=== PATIENT | male | born 1980 | race Caucasian/White ===

== ENCOUNTER 2018-09-29 09:32 | Emergency (ER) | payer OTHER, SELFPAY ==
[2018-09-29 09:36] VITALS: BP 138/90; PULSE 87; RESP 20; TEMP 36.8; O2SAT 100
--- NOTE | 2018-09-29 11:28 | ED.GENADUL_ITS ---
Discharge Plan Disposition Patient Disposition: HOME Condition: Stable Discharge Details Chief Complaint: Laceration Clinical Impression: Finger laceration Primary Care Provider: None,None ED Provider: Betina Jones Home Meds and New Rx's Prescriptions: Continued Triumeq 600-50-300 mg Tablet 1 tab PO DAILY RF: 0 Discharge Instructions Instructions: Finger Laceration (ED) Additional Instructions: Keep wound clean, dry and intact. If you notice any pain, mild redness or swelling, apply topical antibiotic ointment. Return to the emergency department or follow-up with primary care doctor in 7 days for suture removal. If you have any significant signs of infection such as fever, or worsening redness pain or swelling, return to the emergency department for evaluation. You will receive a call from care management regarding a follow-up appointment with her primary care doctor. Stand Alone Forms: Work Release Discharge Data Discharge Physician: Betina Jones Medical Decision Making 37-year-old male who presents with right thumb laceration sustained with laser while at work. Tetanus up-to-date. He has a 2 cm laceration on the medial aspect of the right distal thumb lateral to the nailbed. There is no nail laceration. There is no bony injury, foreign body. Patient is neurovascularly intact. No focal deficits. Wound was irrigated well without evidence of foreign body, tendon or bony injury. 3 sutures were placed. Patient has a history of HIV and states he is taking his HIV medication. He states his viral load is undetectable. He does not currently have a primary care doctor as he recently moved from [place]. Will place patient on care management list to arrange for follow-up appoint with primary care doctor. He is instructed return here or to a primary care doctor in 7 days for suture removal. He is instructed to keep area clean, dry and intact and covered with antibiotic ointment with any signs of mild infection. He is instructed return here immediately with any significant worsening signs of infection to fever, or significant increase in redness pain or swelling. HPI General Mode of arrival: ambulatory . Date/Time Provider Initiated Documentation: 09/29/18 09:34 . Limitations to Documentation: no limitations . Information obtained by: patient . HPI Narrative: Patient is a 37-year-old male who presents the ED with complaint of right thumb laceration sustained at work when cutting with a razor. Patient states his tetanus is up-to-date within the past 5 years. He denies any bony injury or foreign body. Related Data Home Medications Medication Instructions Recorded Confirmed Triumeq 1 tab PO DAILY 09/29/18 09/29/18 Allergies Allergy/AdvReac Type Severity Reaction Status Date / Time No Known Allergies Allergy Unverified 09/29/18 09:39 General Stated Complaint: Laceration AMY: 3 Review of Systems Review of Systems All systems reviewed & are unremarkable except as noted in HPI and below Constitutional Reports as per HPI, Denies chills and Denies fever(s) Eyes Denies blurry vision ENT Denies dizziness, Denies sore throat and Denies throat swelling Cardiovascular Denies chest pain and Denies dyspnea Respiratory Denies cough and Denies dyspnea Gastrointestinal Denies abdominal pain, Denies diarrhea and Denies vomiting Genitourinary Denies hematuria and Denies dysuria Musculoskeletal Denies back pain and Denies numbness Integumentary/Breasts Denies lesions and Denies rash Neurologic Denies dizziness, Denies focal weakness and Denies numbness Allergic/Immunologic Denies throat swelling [facility] Medical History HIV (human immunodeficiency virus infection) (Acute) Surgical History No significant past surgical history (Acute) Social History Smoking and Tabacco status: Current every day alcohol intake: never substance use type: does not use Exam Const General: cooperative, healthy appearing and no acute distress HENMT Head: normal to inspection Mouth: oral mucosae normal Eyes General: appearance normal, both eyes and all related structures Neck Neck: normal visual inspection Resp Effort & Inspection: normal respiratory effort and able to speak in complete sentences Cardio Rate: regular rate Skin General skin exam: no rashes or lesions noted Neuro General: alert, awake and oriented x3 Motor: muscle tone normal throughout Extrem Other: 2 cm straight laceration noted on medial aspect of right distal thumb. Wound edges closely approximated. No foreign body noted. No erythema, edema or ecchymosis. No bony injury. Psych Appearance: grossly normal Affect: normal affect Course Vital Signs Temperature 98.2 F 09/29/18 09:36 Pulse 87 09/29/18 09:36 Respiratory Rate 20 09/29/18 09:36 Blood Pressure 138/90 09/29/18 09:36 Pulse Oximetry 100 09/29/18 09:36 Temperature 98.2 F 09/29/18 09:36 Temperature Source Temporal Artery Scan 09/29/18 09:36 Pulse 87 09/29/18 09:36 Respiratory Rate 20 09/29/18 09:36 Respiratory Effort Non-Labored 09/29/18 09:36 Blood Pressure 138/90 09/29/18 09:36 Blood Pressure Position Sitting 09/29/18 09:36 Pulse Oximetry 100 09/29/18 09:36 Oxygen Delivery Method Room Air 09/29/18 09:36 Oxygen Flow Rate 0 09/29/18 09:36 Pain Level 3 09/29/18 09:36 Procedures Laceration Laceration 1: Site: upper extremity (R thumb) Side (If applicable): right Size (cm): 2 Description: linear Depth: simple, single layer Local Anesthetic: Lidocaine 1% Pre-repair: wound explored and irrigated extensively Skin layer closed with: nylon Size (cm): 5-0 Number of sutures: 3 Technique: simple, interrupted
--- NOTE | 2018-09-29 11:38 | NUR.NOTE ---
area dressed with bactracin under bandaide dressing. Nursing Note:
--- NOTE | 2018-10-01 08:53 | PDOC.ERCMPRO ---
Care Management Progress Note 10/01- On 09/30 Dr. Jones requested assistance with a PCP (Patient new to [facility] and does not have a PCP, Dr Ortega [employer] [facility]), soon as patient has medical issues that need to be addressed. Referral faxed to [facility] on 09/30. [facility] faxed back that patient needs to call for new patient packet. Called [facility] and spoke with Liliana to see if they reached out to patient. Liliana stated I needed to speak with Annabelle and was transferred. This CM left a voice mail on [employer]s machine.
--- NOTE | 2018-10-01 08:56 | CMPROGNOTE_ITS ---
Care Management Progress Note 10/01- On 09/30 Dr. Jones requested assistance with a PCP (Patient new to [facility] and does not have a PCP, Dr Ortega [facility]), soon as patient has medical issues that need to be addressed. Referral faxed to [facility] on 09/30. [facility] faxed back that patient needs to call for new patient packet. Called [facility] and spoke with Liliana to see if they reached out to patient. Liliana stated I needed to speak with Annabelle and was transferred. This CM left a voice mail on [employer]'s machine.
== END 2018-09-29 11:38 | disposition home or self-care (01) ==
PROVIDERS: Emergency Provider Physician Assistant
DX: S61.011A Laceration without foreign body of right thumb without damage to nail, initial encounter (principal); W26.8XXA Contact with other sharp object(s), not elsewhere classified, initial encounter; B20 Human immunodeficiency virus [HIV] disease
CPT/HCPCS: 12001